=== PATIENT | male | born 1975 | race Caucasian/White ===

== ENCOUNTER 2021-11-15 06:38 | Day surgery (SDC) | payer BC ==
[2021-11-15] MEDS ORDERED: LIDOCAINE HCL 2% 100 MG/5 ML IJ ONE (06:39)
[2021-11-15] MEDS ORDERED: Depo-Medrol 40 MG/ML IM ONE (06:39)
[2021-11-15] MEDS ORDERED: DIPRIVAN 200 MG/20 ML IV ONE (08:25)
[2021-11-15] MEDS ORDERED: Lactated Ringers 1,000 ML IV ONE (09:29)
--- NOTE | 2021-11-15 09:51 | XRAY ---
Indication: Bilateral L4-S1 MBB. Intraoperative fluoroscopy provided for 21 seconds. Single digital spot image submitted for interpretation demonstrates posterior needle tips projecting over the expected left and right L4-S1 nerve roots. Correlate with intraoperative findings/report.
--- NOTE | 2021-11-15 11:34 | XRAY ---
21 seconds of fluoroscopy was used in surgery for a bilateral L4-S1 MBB.
== END 2021-11-15 08:50 | disposition home or self-care (01) ==
LOC: SDC-PAIN 06:38
PROVIDERS: ATTEND Psychiatry & Neurology Pain Medicine
DX: M47.816 Spondylosis without myelopathy or radiculopathy, lumbar region (principal); Z79.899 Other long term (current) drug therapy
CPT/HCPCS: 64493; 64494; 72020; 77002; J1030; J2704

== ENCOUNTER 2021-12-20 10:00 | Day surgery (SDC) | payer BC ==
[2021-12-20] MEDS ORDERED: Marcaine Mpf 0.5% Vial 30 Ml IJ ONE (10:01)
[2021-12-20] MEDS ORDERED: Depo-Medrol 40 MG/ML IM ONE (10:01)
[2021-12-20] MEDS ORDERED: DIPRIVAN 200 MG/20 ML IV ONE (11:23)
[2021-12-20] MEDS ORDERED: Lactated Ringers 1,000 ML IV ONE (11:38)
--- NOTE | 2021-12-20 12:24 | XRAY ---
Indication: Bilateral L4-S1 MBB. Intraoperative fluoroscopy provided for 9 seconds. Single digital spot image submitted for interpretation demonstrates posterior needle tips projecting over the expected left and right L4-S1 nerve roots. Correlate with intraoperative findings/report.
--- NOTE | 2021-12-20 12:27 | XRAY ---
9 seconds fluoroscopy time in surgery for bilateral L4-S1 MBB.
== END 2021-12-20 11:45 | disposition home or self-care (01) ==
LOC: SDC-PAIN 10:00
PROVIDERS: ATTEND Psychiatry & Neurology Pain Medicine
DX: M47.816 Spondylosis without myelopathy or radiculopathy, lumbar region (principal); Z79.899 Other long term (current) drug therapy
CPT/HCPCS: 64493; 64494; 72020; 77002; J1030; J2704

== ENCOUNTER 2022-01-17 11:42 | Day surgery (SDC) | payer BC ==
[2022-01-17] MEDS ORDERED: Marcaine Mpf 0.5% Vial 30 Ml IJ ONE (11:43)
[2022-01-17] MEDS ORDERED: XYLOCAINE-MPF 1% 5ML SDV IJ ONE (11:43)
[2022-01-17] MEDS ORDERED: Depo-Medrol 40 MG/ML IM ONE (11:43)
[2022-01-17] MEDS ORDERED: DIPRIVAN 200 MG/20 ML IV ONE ×2 (14:43→14:53)
--- NOTE | 2022-01-17 16:27 | XRAY ---
Indication: Right L4-S1 RFA. Intraoperative fluoroscopy provided for 29 seconds. 3 digital spot image submitted for interpretation demonstrates posterior needle tips projecting over the expected right L4-S1 nerve roots. Correlate with intraoperative findings/report.
--- NOTE | 2022-01-17 16:47 | XRAY ---
29 seconds of fluoroscopy was used in surgery for a right L4-S1 RFA.
== END 2022-01-17 15:03 | disposition home or self-care (01) ==
LOC: SDC-PAIN 11:42
PROVIDERS: ATTEND Psychiatry & Neurology Pain Medicine
DX: M47.816 Spondylosis without myelopathy or radiculopathy, lumbar region (principal); Z79.899 Other long term (current) drug therapy
CPT/HCPCS: 64635; 64636; 72100; 77002; J1030; J2704

== ENCOUNTER 2022-01-24 11:00 | Day surgery (SDC) | payer BC ==
[2022-01-24] MEDS ORDERED: Lactated Ringers 1,000 ML IV ONE (11:01)
[2022-01-24] MEDS ORDERED: Marcaine Mpf 0.5% Vial 30 Ml IJ ONE (11:01)
[2022-01-24] MEDS ORDERED: Depo-Medrol 40 MG/ML IM ONE (11:01)
[2022-01-24] MEDS ORDERED: XYLOCAINE-MPF 1% 5ML SDV IJ ONE (11:01)
[2022-01-24] MEDS ORDERED: DIPRIVAN 200 MG/20 ML IV ONE (14:01)
[2022-01-24] MEDS ORDERED: Ketamine HCl 50 MG/ML ONE (14:03)
--- NOTE | 2022-01-24 16:12 | XRAY ---
Indication: Left L4-S1 RFA. Intraoperative fluoroscopy provided for 22 seconds. 3 digital spot image submitted for interpretation demonstrates posterior needle tips projecting over the expected left L4-S1 nerve roots. Correlate with intraoperative findings/report.
--- NOTE | 2022-01-24 16:31 | XRAY ---
22 seconds of fluoroscopy was used in surgery for a left L4-S1 RFA.
== END 2022-01-24 14:30 | disposition home or self-care (01) ==
LOC: SDC-PAIN 11:00
PROVIDERS: ATTEND Psychiatry & Neurology Pain Medicine
DX: M47.816 Spondylosis without myelopathy or radiculopathy, lumbar region (principal); Z79.899 Other long term (current) drug therapy
CPT/HCPCS: 64635; 64636; 72100; 77002; J1030; J2704

== ENCOUNTER 2022-05-09 13:33 | Day surgery (SDC) | payer BC ==
[2022-05-09] MEDS ORDERED: BUPIVACAINE 0.5% VIAL IJ ONE (13:34)
[2022-05-09] MEDS ORDERED: Depo-Medrol 40 MG/ML IM ONE (13:34)
[2022-05-09] MEDS ORDERED: DIPRIVAN 200 MG/20 ML IV ONE (15:01)
--- NOTE | 2022-05-09 16:33 | XRAY ---
Indication: Bilateral SI joint injection. Intraoperative fluoroscopy provided for 27 seconds. 4 digital spot image submitted for interpretation demonstrates posterior needle tip projecting over the left and right SI joint. Correlate with intraoperative findings/report.
--- NOTE | 2022-05-09 16:43 | XRAY ---
27 seconds of fluoroscopy was used in surgery for a bilateral sacroiliac joint injection.
[2022-05-09] MEDS ORDERED: Lactated Ringers 1,000 ML IV ONE (16:46)
== END 2022-05-09 15:23 | disposition home or self-care (01) ==
LOC: SDC-PAIN 13:33
PROVIDERS: ATTEND Psychiatry & Neurology Pain Medicine
DX: M46.1 Sacroiliitis, not elsewhere classified (principal); Z79.899 Other long term (current) drug therapy
CPT/HCPCS: 27096; 72202; 77002; J1030; J2704; G0260

== ENCOUNTER 2024-05-20 12:11 | Day surgery (SDC) | payer BC ==
[2024-05-20] MEDS ORDERED: BUPIVACAINE 0.5% VIAL IJ ONE (12:12)
[2024-05-20] MEDS ORDERED: LIDOCAINE HCL 1% AMPUL 5 ML IJ ONE (12:12)
[2024-05-20] MEDS ORDERED: Depo-Medrol 40 MG/ML IM ONE (12:12)
[2024-05-20] MEDS ORDERED: DIPRIVAN 200 MG/20 ML IV ONE (14:03)
--- NOTE | 2024-05-20 16:31 | XRAY ---
Indication: Right L4-S1 RFA. Intraoperative fluoroscopy provided for 21 seconds. 3 digital spot image submitted for interpretation demonstrates posterior needle tips projecting over the expected right L4-S1 nerve roots. Correlate with intraoperative findings/report.
--- NOTE | 2024-05-20 17:10 | XRAY ---
21 seconds of fluoroscopy was used in surgery for a right L4-S1 RFA.
== END 2024-05-20 14:36 | disposition home or self-care (01) ==
LOC: SDC-PAIN 12:11
PROVIDERS: ATTEND Psychiatry & Neurology Pain Medicine
DX: M47.816 Spondylosis without myelopathy or radiculopathy, lumbar region (principal)
CPT/HCPCS: 64635; 64636; 72100; 77002; J2704

== ENCOUNTER 2024-06-03 12:24 | Day surgery (SDC) | payer BC ==
[2024-06-03] MEDS ORDERED: BUPIVACAINE 0.5% VIAL IJ ONE (12:25)
[2024-06-03] MEDS ORDERED: LIDOCAINE HCL 1% AMPUL 5 ML IJ ONE (12:25)
[2024-06-03] MEDS ORDERED: Depo-Medrol 40 MG/ML IM ONE (12:25)
[2024-06-03] MEDS ORDERED: DIPRIVAN 200 MG/20 ML IV ONE ×2 (14:17→14:29)
--- NOTE | 2024-06-03 18:54 | XRAY ---
Indication: Left L4-S1 RFA. Intraoperative fluoroscopy provided for 26 seconds. 3 digital spot image submitted for interpretation demonstrates posterior needle tips projecting over the expected left L4-S1 nerve roots. Correlate with intraoperative findings/report.
--- NOTE | 2024-06-03 19:23 | XRAY ---
26 seconds of fluoroscopy was used in surgery for a left L4-S1 RFA.
== END 2024-06-03 15:02 | disposition home or self-care (01) ==
LOC: SDC-PAIN 12:24
PROVIDERS: ATTEND Psychiatry & Neurology Pain Medicine
DX: M47.816 Spondylosis without myelopathy or radiculopathy, lumbar region (principal)
CPT/HCPCS: 64635; 64636; 72100; 77002; J2704